=== PATIENT | male | born 1970 | race Caucasian/White ===

== ENCOUNTER 2017-04-01 11:36 | Emergency (ER) | payer OTHER ==
[~2017-04-01] VITALS: Ht 172.7 cm; Wt 86.4 kg
[2017-04-01 11:50] VITALS: BP 174/103; PULSE 60; RESP 18; O2SAT 100
--- NOTE | 2017-04-01 12:15 | ED.REPORT ---
HPI-Abd Pain M 40 and Over Date of Service Apr 01, 2017 ED Provider: Harpreet Del Real DO Pt is a generally healthy 46 y/o male w/ a hx of nephrolithiasis presenting to the ED with his friend c/o intermittent right flank pain onset this morning. The patient woke up this morning experiencing quite severe right flank pain which has been waxing and waning in severity since onset and occasionally radiates to the RLQ. He c/o associated nausea, vomiting. The patient had similar pain 11 years ago which was caused by a kidney stone. He still has his appendix. Pt denies fever, chills. Nursing Notes Stated Complaint: POSS KIDNEY STONES Chief Complaint: Male Abdominal Pain Nursing Notes Reviewed: Yes Allergies: Coded Allergies: Benzodiazepines (Verified Allergy, Severe, 04/01/17) Scheduled PRN Naproxen (Naprosyn) 500 Mg Tablet 500 MG PO BID PRN PRN For Pain Ondansetron ODT (Zofran ODT) 4 Mg Tablet 4 MG PO Q4H PRN PRN For Nausea Tramadol (Tramadol) 50 Mg Tablet 50 MG PO Q4H PRN PRN For Pain General Time Seen by MD: 12:14 Chief Complaint Flank pain right Hx Obtained From: Patient Arrived By: Walk-in Sudden in Onset?: Yes Onset Occurred: 5 - 8 hours ago Symptom Duration: Intermittent Progression since Onset: Intermittent Location: : Flank right Quality: Painful Radiation: : RLQ Severity: Current: Moderate Severity: Maximum: Severe Recent Healthcare: Previous diagnosis Similar Sx Previous: Yes Past Medical History Past Medical History Arthritis Nephrolithiasis Past Surgical History None reported Smoking History Unknown if Ever Smoker Ambulatory Status Independent Review of Systems Constitutional: Denies: Fever Respiratory: Denies: Non-productive cough, Shortness of breath Cardiovascular: Denies: Chest pain GI: Reports: Abdominal pain, Nausea, Vomiting Male: Reports Flank pain Complete sys rev & neg: except as marked. Physical Exam Initial Vital Signs Vital Signs (First) Date Time Temp Pulse Resp B/P Pulse Ox O2 Delivery O2 Flow Rate FiO2 04/01/17 11:50 36.2 60 18 174/103 100 Room Air Initial VS: Reviewed, Vital signs abnormal Head / Eyes: Atraumatic, Normocephalic ENT: Mucous membranes moist, Conjunctiva normal Neck: Full range of motion Extremities: Vascular intact, Neuro intact, No swelling Skin: Warm, Dry, No cyanosis Neurologic: Alert, Oriented, Nonfocal Psychiatric: Mood/affect normal, Behavior normal, Normal thought content General/Constitutional: Awake, Alert, No acute distress, Cooperative, Not toxic appearing Appearance / Presentation: Positive: Uncomfortable Respiratory / Chest: Breath sounds NL, Breath sounds = bilat, No respiratory distress, No rales, No rhonchi, No wheezing Cardiovascular: Heart rate NL, Regular rhythm, Heart sounds NL, No murmurs, Pulses = bilaterally Abdomen: Atraumatic, Soft, Non-tender, McBurney's non-tender, No guarding, No rebound, No distention, No palpable mass Back: Full range of motion, Painless range of motion, No midline vertebral tend , No CVA tenderness Interpretation & Diagnostics Lab Results Interpretation Test 04/01/17 12:35 Hold Urine Received (Received) Lab Results Interpretation: Urine dip: blood present, no signs of infection CT Abd / Pelvis Interpretation IMPRESSION: 1. Minimal to mild right hydronephrosis with punctate right ureteropelvic calcification. Dictated by: Dia Lomax M.D. on 04/01/2017 at 12:59 Approved by: Dia Lomax M.D. on 04/01/2017 at 13:01 Study type: Abdominal CT no contrast Interpretation / Wet Read by: Interpret - Radiologist Re-Eval/Medical Decision Time of Eval: 13:10 Re-Evaluation/Progress Note: Pt rechecked. Discussed imaging findings. Informed pt of plan for discharge. Pt understands and agrees with plan for discharge. F/U instructions and RTER warnings given. All questions addressed. Counseled Regarding: Diagnosis, Lab results, Need for follow-up, When/why to return to ED Discharge & Departure Primary Impression: Right ureteral calculus Disposition: Home Vital Signs - All Vital Signs Date Time Temp Pulse Resp B/P Pulse Ox O2 Delivery O2 Flow Rate FiO2 04/01/17 13:44 78 16 128/72 97 Room Air 04/01/17 11:50 36.2 60 18 174/103 100 Room Air )( All Prior VS Reviewed: Yes Condition: Stable Patient Instructions: Ureteral Stones (ED) Additional Instructions: The CT scan today showed that you have a small stone in your right ureter. This is likely the cause of your pain. The urine showed no signs of infection. Take Naproxen as directed for aching pain. Take tramadol as directed for severe or breakthrough pain. Do not drink alcohol or drive while taking this medication as it causes sedation. Take Zofran as directed for nausea or vomiting. Return to the emergency department if you experience fever, pain or burning with urination, uncontrolled pain, persistent vomiting, or for other concerning symptoms. Follow-up with your primary care doctor in 3-7 days for a recheck. Referrals: Cheryl Birch (PCP) Scribe Attestation Portions of this note were transcribed by Constantino Klein. I, Dr. Del Real personally performed the history, physical exam and medical decision-making; I reviewed and confirmed the accuracy of the information in the transcribed note. copies to: Cheryl Birch Timothy S DO Apr 01, 2017 12:15 CONSTANTINO KLEIN Apr 01, 2017 12:27
--- NOTE | 2017-04-01 13:03 | DRSVH ---
PROCEDURE: CT KUB ([id number]) INDICATIONS: right flank pain TECHNIQUE: Noncontrast 5 mm thick sections acquired from the diaphragms to the symphysis. 5 mm thick coronal an d sagittal reformats were then performed. For radiation dose reduction, the following was used: aut omated exposure control, adjustment of mA and/or kV according to patient size. COMPARISON: None. FINDINGS: Image quality: Excellent. Lung bases: Lung bases are clear. Heart size is normal. Urinary system: Both kidneys are normal in size. Minimal to mild right perinephric stranding. Minim al to mild right hydronephrosis. There is a punctate calcification at the ureteropelvic junction. Rem aining portion of the ureter is unremarkable. Left kidney and ureter are within normal limits. Bladde r wall thickness is normal; no calcified bladder stones. The prostate gland is enlarged with calcifi cations. Other solid organs: Liver and spleen are normal in size. Gallbladder is unremarkable. Pancreas is normal in contours. No adrenal nodules. Peritoneum and bowel: Unenhanced bowel loops demonstrate normal wall thickness and caliber. No free fluid or air. Nodes and vessels: No retroperitoneal or mesenteric adenopathy by size criteria. Aorta and inferior vena cava are normal in caliber. Abdominal wall: No ventral hernias. Pelvis: No free pelvic fluid. Fat-containing inguinal hernia most notably on the right. Bones: No suspicious bony lesions. No vertebral body compression fractures. IMPRESSION: 1. Minimal to mild right hydronephrosis with punctate right ureteropelvic calcification. Dictated by: Dia Lomax M.D. on 04/01/2017 at 12:59 Approved by: Dia Lomax M.D. on 04/01/2017 at 13:01
[2017-04-01] MEDS ORDERED: NAPR500T PO (13:20)
[2017-04-01] MEDS ORDERED: TRAM50TA2 PO (13:20)
[2017-04-01] MEDS ORDERED: ONDA4TAB9 PO (13:20)
[2017-04-01 13:44] VITALS: BP 128/72; PULSE 78; RESP 16; O2SAT 97
== END 2017-04-01 13:46 | disposition home or self-care (01) ==
LOC: SED 11:36
DX: N20.1 Calculus of ureter (principal); R11.2 Nausea with vomiting, unspecified; Z87.442 Personal history of urinary calculi; Z88.8 Allergy status to other drugs, medicaments and biological substances
CPT/HCPCS: 74176; 96372; 99285; G0463; J1885

== ENCOUNTER 2017-04-04 10:31 | Emergency (ER) | payer OTHER ==
[~2017-04-04] VITALS: Ht 170.2 cm; Wt 87.3 kg
[~2017-04-04 10:31] MED LIST: NAPR500T PO; ONDA4TAB9 PO; TRAM50TA2 PO
[2017-04-04 10:40] VITALS: BP 168/124; PULSE 71; RESP 18; O2SAT 100
--- NOTE | 2017-04-04 10:44 | ED.REPORT ---
HPI-Abd Pain M 40 and Over Date of Service Apr 04, 2017 ED Provider: Harpreet Del Real MD A 46 year old male with a history of arthritis and nephrolithiasis presents to the ED complaining of a possible kidney stone. The pt was seen in the ED on 08/2016 for a right-sided kidney stone. He was discharged and believed that he had passed the stone because the pain resolved, but experienced recurrent right- sided flank and abdominal pain this morning. He denies hematuria. The pt also notes that he took Meloxicam last night, which he is prescribed PRN for left knee pain, followed by pain this morning. This is the same sequence of events that brought him to the ED several days ago. Nursing Notes Stated Complaint: ABDOMINAL PAIN/KIDNEY STONE Chief Complaint: Male Abdominal Pain Nursing Notes Reviewed: Yes Allergies: Coded Allergies: Benzodiazepines (Verified Allergy, Severe, 04/01/17) Scheduled PRN Naproxen (Naprosyn) 500 Mg Tablet 500 MG PO BID PRN PRN For Pain Ondansetron ODT (Zofran ODT) 4 Mg Tablet 4 MG PO Q4H PRN PRN For Nausea Tramadol (Tramadol) 50 Mg Tablet 50 MG PO Q4H PRN PRN For Pain General Time Seen by MD: 10:43 Chief Complaint Other (Possible kidney stone) Hx Obtained From: Patient Arrived By: Walk-in Sudden in Onset?: Yes Onset Occurred: 1 - 4 hours ago Symptom Duration: Since onset Recent Healthcare: Recent doctor visit Similar Sx Previous: Yes Past Medical History Past Medical History Arthritis Nephrolithiasis Past Surgical History None reported Smoking History Unknown if Ever Smoker Ambulatory Status Independent Review of Systems Respiratory: Denies: Non-productive cough, Shortness of breath Cardiovascular: Denies: Chest pain GI: Reports: Abdominal pain Male: Reports Flank pain, Denies Hematuria Musculoskeletal: Denies: Back pain, Neck pain Complete sys rev & neg: except as marked. Physical Exam Initial Vital Signs Vital Signs (First) Date Time Temp Pulse Resp B/P Pulse Ox O2 Delivery O2 Flow Rate FiO2 04/04/17 10:40 36.9 71 18 168/124 100 Initial VS: Reviewed General/Constitutional: Awake, Alert mildly uncomfortable Respiratory / Chest: Atraumatic, Breath sounds NL, Breath sounds = bilat, No respiratory distress Cardiovascular: Heart rate NL, Regular rhythm, Heart sounds NL 2+ posterior tibial pulses Abdomen: Atraumatic, Soft, Non-tender Back: Atraumatic, Full range of motion mild right CVAT Head / Eyes: Atraumatic, Normocephalic, PERRL, EOMI ENT: Atraumatic, Airway patent, Mucous membranes moist Skin: Atraumatic, Color NL, No rash, Warm, Dry Neurologic: Oriented X3, Speech NL, No motor deficits, No sensory deficits Neck: Atraumatic, Supple, Full range of motion Upper Extremity / MS: Atraumatic, Full range of motion Lower Extremity / Pelvis / MS: Full range of motion, Neurologic intact, Vascular intact Psychiatric: Affect NL, Mood NL Interpretation & Diagnostics Lab Results Interpretation Test 04/04/17 11:34 Re-Eval/Medical Decision Med Decision/Clinical Course Pain resolved after Toradol. Urine only positive for blood consistent with previously diagnosed kidney stone. Recommend medication management and follow-up. Return precautions given Source of Hx: Old records Time of Eval: 11:36 Patient Status: Condition improved Re-Evaluation/Progress Note: Pt rechecked, whose condition has improved. The diagnosis and plan for discharge are discussed. The pt understands and agrees with the plan. All questions are addressed at this time. Counseled Regarding: Diagnosis, Lab results, Need for follow-up, When/why to return to ED Discharge & Departure Primary Impression: Flank pain Disposition: Home Vital Signs - All Vital Signs Date Time Temp Pulse Resp B/P Pulse Ox O2 Delivery O2 Flow Rate FiO2 04/04/17 10:40 36.9 71 18 168/124 100 )( All Prior VS Reviewed: Yes Condition: Stable Patient Instructions: Flank Pain (ED) Additional Instructions: Thank you for entrusting us with your care. Your evaluation in the emergency department today was reassuring. Call your primary care physician to arrange a follow up appointment in the next several days. Also call urology (Dr. Long) to arrange follow up. Return to the emergency department if you develop any new or worsening symptoms. Referrals: Cheryl Birch (PCP) Joie Long MD Scribe Attestation Portions of this note were transcribed by Cristi Hightower. I, Dr. Del Real personally performed the history, physical exam and medical decision-making; I reviewed and confirmed the accuracy of the information in the transcribed note. copies to: Joie Long MD; Cheryl Birch Timothy S DO Apr 04, 2017 10:44 CRISTI HIGHTOWER Apr 04, 2017 11:04
== END 2017-04-04 12:07 | disposition home or self-care (01) ==
LOC: SED 10:31
DX: R10.31 Right lower quadrant pain (principal); M25.562 Pain in left knee; Z87.442 Personal history of urinary calculi; Z88.8 Allergy status to other drugs, medicaments and biological substances
CPT/HCPCS: 96372; 99284; J1885